=== PATIENT | male | born 1980 | race Two or more races ===

== ENCOUNTER 2019-01-20 13:37 | Emergency (ER) | payer SELFPAY ==
[2019-01-20] MEDS ORDERED: Tetracaine HCl/PF 0.5% 4 ML Bottle ONE (14:09)
[2019-01-20] MEDS ORDERED: Tetracaine HCl/PF 0.5% 4 ML Bottle EYERT ONE (14:09)
--- NOTE | 2019-01-20 14:27 | EDM.PDOC ---
ED HPI GENERAL MEDICAL PROBLEM - General Chief Complaint: Eye Problems Stated Complaint: RT EYE COMPLAINTS Time Seen by Provider: 01/20/19 13:46 Source of Information: Reports: Patient History Limitations: Reports: No Limitations - History of Present Illness INITIAL COMMENTS - FREE TEXT/NARRATIVE: Presents reporting that 3 days ago he woke up with bright redness in his right eye. Denies pain, tearing, discharge or itch. He states that his vision is a little blurry. He denies any injury. No medical problems. Interview accomplished with a medical operations supervisor. - Related Data Allergies Allergy/AdvReac Type Severity Reaction Status Date / Time No Known Allergies Allergy Verified 01/20/19 13:57 Home Meds: Home Meds . [No Known Home Meds] 01/20/19 [History] Past Medical History HEENT History: Reports: None - Past Surgical History Other HEENT Surgeries/Procedures: Left Eye Injury Social & Family History - Family History Family Medical History: Noncontributory - Tobacco Use Smoking Status *Q: Never Smoker Second Hand Smoke Exposure: No - Caffeine Use Caffeine Use: Reports: None - Recreational Drug Use Recreational Drug Use: No ED ROS GENERAL - Review of Systems Review Of Systems: ROS reveals no pertinent complaints other than HPI. ED EXAM GENERAL W FULL EYE - Physical Exam Exam: See Below General Appearance: Alert, No Apparent Distress Eye Exam: Bilateral Eye: EOMI, PERRL Visual Acuity (R) 20/: 20 Visual Acuity (L) 20/: 200 (Pre-existing) Conjunctiva & Sclera: Right: Subconjuctival Hemorrhage Cornea Exam: Right: Corneal Abrasion Pupillary Size: Bilateral: 4 mm Pupillary Reaction: Bilateral: Brisk Nose: Normal Inspection Throat/Mouth: Normal Inspection Head: Atraumatic, Normocephalic Neck: Normal Inspection Respiratory/Chest: No Respiratory Distress Cardiovascular: Normal Peripheral Pulses, No Murmur ED EYE w/ Add Procedure - Eye Procedure Alcaine Drops Administered: Yes Eye Irrigated w/ Saline (ccs): 20 Course - Vital Signs Last Recorded V/S: Last Vital Signs Temp 36.6 C 01/20/19 13:58 Pulse 61 01/20/19 13:58 Resp 17 01/20/19 13:58 BP 124/81 01/20/19 13:58 Pulse Ox 97 01/20/19 13:58 - Orders/Labs/Meds Meds: Medications Discontinued Medications Generic Name Dose Route Start Last Admin Trade Name Jose PRN Reason Stop Dose Admin Tetracaine HCl 1 ml 01/20/19 14:09 01/20/19 14:15 Tetracaine 0.5% Steri-Unit Manju EYERT 01/20/19 14:10 1 drop ASDIRECTED ONE Administration Tetracaine HCl Confirm 01/20/19 14:09 Tetracaine 0.5% Steri-Unit Manju Administered 01/20/19 14:10 Dose 4 ml .ROUTE .STK-MED ONE Departure - Departure Time of Disposition: 14:28 Disposition: Home, Self-Care 01 Condition: Good Clinical Impression: Subconjunctival bleed Qualifiers: Laterality: right Qualified Code(s): H11.31 - Conjunctival hemorrhage, right eye - Discharge Information Referrals: PCP,None [Primary Care Provider] - [facility] [Outside] Additional Instructions: 1. Eye drops 3 drops four times a day for 3 days. 2. Follow up in eye clinic.
== END 2019-01-20 15:32 | disposition home or self-care (01) ==
LOC: MW.ED 13:37
DX: S05.01XA Injury of conjunctiva and corneal abrasion without foreign body, right eye, initial encounter (principal); X58.XXXA Exposure to other specified factors, initial encounter
CPT/HCPCS: 99282